=== PATIENT | female | born 1950 | race Caucasian/White ===

== ENCOUNTER 2022-11-26 10:09 | Outpatient (RCR) | payer MEDICARE, OTHER, SELFPAY | END 2023-01-29 16:00 | disposition home or self-care (01) | LOC: HO.WCC 10:09 | PROVIDERS: Visit Provider Physician Assistant | DX: T20.29XA Burn of second degree of multiple sites of head, face, and neck, initial encounter (principal); T20.19XA Burn of first degree of multiple sites of head, face, and neck, initial encounter; T22.20XA Burn of second degree of shoulder and upper limb, except wrist and hand, unspecified site, initial encounter; T22.211A Burn of second degree of right forearm, initial encounter; T21.21XA Burn of second degree of chest wall, initial encounter; T21.22XA Burn of second degree of abdominal wall, initial encounter; T20.211A Burn of second degree of right ear [any part, except ear drum], initial encounter; T23.271A Burn of second degree of right wrist, initial encounter; T23.252A Burn of second degree of left palm, initial encounter; T22.221A Burn of second degree of right elbow, initial encounter; T26.41XA Burn of right eye and adnexa, part unspecified, initial encounter; T31.30 Burns involving 30-39% of body surface with 0% to 9% third degree burns; X12.XXXA Contact with other hot fluids, initial encounter; Y93.9 Activity, unspecified; Y92.833 Campsite as the place of occurrence of the external cause; Y99.9 Unspecified external cause status | CPT/HCPCS: 16025 ==